=== PATIENT | female | born 1980 | race Two or more races ===

== ENCOUNTER → 2025-04-05 | Outpatient (CLI) | payer MEDICAID, SELFPAY ==
--- NOTE | 2025-04-05 09:00 | XR_ITS ---
Examination: CT chest, without intravenous contrast. Sagittal and coronal 2-D reconstructions. Exam date and time: April 05, 2025 0954 hours, comparison February 17, 2024 INDICATIONS: CT chest February 17, 2024 15 mm pulmonary nodule right upper lobe CTDI:vol (mGy) 8.46 DLP: (mGycm) 300 Technique: Multiple 3.0 mm axial sections of the chest to been obtained. Bone and lung density settings are obtained. Sagittal and coronal 2-D reconstructions have been obtained. Low dose protocols were performed. One or more of the following dose reduction techniques were used; automated exposure control, adjustment of the mA and/or KV according to patient size, use of iterative reconstruction technique. Findings: No thoracic aortic aneurysmal dilatation No pulmonary artery emboli. 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
[2025-04-05 09:46] LABS: HCG Qualitative,Urine Negative
== END | disposition home or self-care (01) ==
PROVIDERS: PCP Physician Assistant; Referring Provider Internal Medicine Pulmonary Disease; Visit Provider Internal Medicine Pulmonary Disease
DX: R91.1 Solitary pulmonary nodule (principal); E27.8 Other specified disorders of adrenal gland; Z32.00 Encounter for pregnancy test, result unknown
CPT/HCPCS: 71250; 81025

== ENCOUNTER 2025-05-15 19:17 | Emergency (ER) | payer MEDICAID, SELFPAY ==
[2025-05-15 19:19] VITALS: BMI 31.1
--- NOTE | 2025-05-15 19:25 | EKG_ITS ---
[facility] Test Date: 2025-05-15 Pat Name: AMOS URBANO Department: Room: - Gender: Female [employer]: : 1980 Requested By: ED Temporary Provider Order Number: [id number] Reading MD: ED Temporary Provider Measurements Intervals [place] Rate: 79 P: 55 SD: 132 QRS: 45 QRSD: 84 T: 42 QT: 364 QTc: 419 Interpretive Statements SINUS RHYTHM Compared to ECG 12/05/2018 17:08:55 Sinus arrhythmia no longer present /store/S0/[id number].pdf
[2025-05-15 20:09] VITALS: BP 130/80; PULSE 81; RESP 18; TEMP 36.7; O2SAT 96
--- NOTE | 2025-05-15 20:12 | PD.EDRME ---
Rapid Medical Screening Exam [facility] Arrival date/time: 05/15/25 19:17 Chief Complaint: Chest Pain Vital signs: Vital Signs Temperature 98.1 F 05/15/25 20:09 Pulse Rate 81 05/15/25 20:09 Respiratory Rate 18 05/15/25 20:09 Blood Pressure 130/80 05/15/25 20:09 Pulse Oximetry (%) 96 05/15/25 20:09 Oxygen Delivery Method Room Air 05/15/25 20:09 [facility] Narrative: 44-year-old female who was feeding her children an hour prior to arrival and began to experience left upper chest pain which radiates to her back associate with nausea and shortness of breath. Patient does state that she was getting over a cold a week ago. Denies drinking smoking. Denies hypertension high cholesterol diabetes. Denies family history of early cardiac disease. Denies recent travel surgeries or immobilizations or history of leg swelling or blood clots.
--- NOTE | 2025-05-15 20:14 | XR_ITS ---
EXAMINATION: PA lateral chest 2 views TECHNIQUE: Upright PA lateral chest 2 views Date and time: May 15, 20252030 hours INDICATIONS: Left upper chest pain shortness of breath today. FINDINGS: Normal heart size Possible 16 mm pulmonary nodule right upper lobe. No pulmonary edema. Intact osseous structures IMPRESSION: Recommend AP lordotic chest to exclude 16mm pulmonary nodule right upper lobe No aspiration pneumonia
--- NOTE | 2025-05-15 20:15 | PD.EDCHEST ---
ED Chest Pain RME/HPI General Chief Complaint: Chest Pain Stated Complaint: L upper chest pain with SOB INCREASING WITH DEEP B Time Seen by Provider: 05/15/25 20:15 Arrival date/time: 05/15/25 19:17 RME / HPI RME / HPI narrative: 44-year-old female who was feeding her children an hour prior to arrival and began to experience left upper chest pain which radiates to her back associate with nausea and shortness of breath. Patient does state that she was getting over a cold a week ago. Pain has been constant. Pain is not exertional or associated with pleurisy as there are no alleviating or exacerbating factors. Denies drinking smoking. Denies hypertension high cholesterol diabetes. Denies family history of early cardiac disease. Denies recent travel surgeries or immobilizations or history of leg swelling or blood clots. Related Data Home Medications ?Medication ?Instructions ?Recorded ?Confirmed omeprazole 20 mg capsule,delayed 20 mg PO BID 05/01/24 05/01/24 release Allergies Allergy/AdvReac Type Severity Reaction Status Date / Time No Known Allergies Allergy Verified 05/15/25 19:23 ED Exam Narrative Physical exam: Constitutional: Patient alert and oriented. Well appearing. No acute distress. Not toxic appearing. Head: Normocephalic, atraumatic. Eyes: Periorbital regions bilaterally normal to inspection. Conjunctiva clear bilaterally. Sclera anicteric bilaterally. Pupils equal, round, reactive to light bilaterally. Extraocular movements intact bilaterally. Mouth/Throat: Mild erythema of OP. Mucous membranes moist. No stridor or muffled voice. No trismus. Handling secretions without difficulty. Airway widely patent. Neck: Supple. Trachea midline. No JVD. No nuchal rigidity. Normal range of motion. Respiratory: Normal effort. No accessory muscle use or respiratory distress. Lungs clear to auscultation bilaterally without rhonchi, wheezes, or crackles. Cardiovascular: RRR. Normal S1/S2. No murmurs or rubs. Radial pulses intact bilaterally. Scar noted to R anterior lateral chest wall. + TTP to left chest wall. Abdomen: Soft. Non-distended. Non-tender throughout. No pulsatile mass. No guarding or rebound. Negative Huizar?s sign. Negative McBurney?s point tenderness. Negative Rovsing?s. Back: No midline tenderness or step-offs. No CVA tenderness to palpation bilaterally. Upper Extremities: No gross deformities. Lower Extremities: No gross deformities. No edema or calf tenderness. Neuro: Speech normal. No gross motor or sensory deficits to upper or lower extremities bilaterally. GCS 15. CN II?XII grossly intact. Skin: Warm, dry, normal color. Psych: Normal affect. Cooperative. Normal insight. Course Quality Measures none Orders Category Date Time Status EKG (ED ONLY) *Do not use* NOW Care 05/15/25 19:25 Completed EKG (ED Only) Stat Exams 05/15/25 19:25 Draft XR chest 2V Stat Exams 05/15/25 20:14 Completed B-Type Natriuretic Peptide Stat Lab 05/15/25 20:30 Completed CBC Stat Lab 05/15/25 20:30 Completed Comprehensive Metabolic Panel Stat Lab 05/15/25 20:30 Completed HCG,Qualitative Serum Stat Lab 05/15/25 20:30 Completed Lipase Stat Lab 05/15/25 20:30 Completed Strep A Rapid Stat Lab 05/16/25 00:24 Completed Troponin I Stat Lab 05/15/25 20:30 Completed Troponin I Stat Lab 05/15/25 23:57 Completed UA [Urinalysis] Stat Lab 05/15/25 20:58 Completed Urinalysis, C/S if Indicated Stat Lab 05/15/25 20:58 Completed Ketorolac Inj [Toradol Inj] Med 05/15/25 20:15 Discontinued 30 mg IM X1 ONE Reevaluation(s) Reevaluation #1: Upon further evaluation of patient she states that she can remember that she was lifting her 5-year-old the other day and might of pulled something, patient does state that the pain is worse when she presses her chest or moves in a certain way. She is requesting a rapid strep swab as well because she feels like she has a mild sore throat. Time: 00:25 Reevaluation #2: At the time of reassessment, the patient remains alert and oriented ?3 with GCS 15. Vitals are normal, pain is controlled, and the patient is tolerating oral intake without nausea or vomiting. The patient is agreeable to discharge and verbalizes understanding of the diagnosis, studies, treatment plan, medications (including side effects/precautions), and strict ER return precautions as discussed in the ED. All concerns were addressed, and the patient is comfortable with the plan. Vital Signs Vital signs: Vital Signs Temperature 98.1 F 05/15/25 20:09 Pulse Rate 81 05/15/25 20:09 Respiratory Rate 18 05/15/25 20:09 Blood Pressure 130/80 05/15/25 20:09 Pulse Oximetry (%) 96 05/15/25 20:09 Oxygen Delivery Method Room Air 05/15/25 20:09 Chest Pain MDM Narrative MDM Narrative:: MDM The patient presents with chest pain. Differential diagnosis includes musculoskeletal chest pain, costochondritis, and thoracic radiculopathy. Less likely etiologies include: PE: Wells low risk, PERC negative. ACS: HEART Score low risk, suggesting low probability of major adverse cardiac event in the next 6 weeks. Aortic Dissection: Unlikely given palpable pulses, warm extremities bilaterally, and no radiation of pain. Tamponade: Unlikely given absence of hypotension, muffled heart sounds, JVD, friction rub, narrow pulse pressure <30, low-voltage EKG, or enlarged cardiac silhouette. Endocarditis: Unlikely as no Nunez criteria present (Archer spots, splinter hemorrhages, Osler nodes). CHF: Unlikely given no JVD, peripheral edema, or orthopnea. The patient is clinically well-appearing and stable. Evaluation today does not suggest cardiac ischemia, pulmonary embolism, aortic dissection, or other life-threatening etiology. These diagnoses were considered and excluded clinically and with appropriate studies. Nonetheless, it is understood by both patient and provider that no evaluation can entirely exclude such conditions. Admission was considered but is not indicated based on today?s evaluation and low-risk stratification. The patient is strongly encouraged to follow up with their PMD and/or truck despatcher within the next 1-2 days. Strict ER return precautions advised for any continued, worsening, or new symptoms or any concerns at all. Patient data External records reviewed:: None Clinical information provided by:: patient Social determinants that could affect healthcare access:: other (specify) Patient has the following chronic illnesses:: None How is presenting disease/condition affected by chronic disease/condition?: no chronic disease Evaluation data The following diagnostics were reviewed and interpreted by me:: other (specify) Lab and/or radiology exams considered but not ordered:: Labs and radiology considered, but not ordered as they were not clinically indicated at this time. Interpretation Summary: EKG 79 normal sinus rhythm, normal axis without ST elevation or T wave inversions. Lab work notable for minimal thrombocytosis with platelet count of 453 otherwise CBC, CMP, BNP, troponin negative x 2 without severe metabolic or electrolyte abnormality UA unremarkable Chest x-ray notable for possible 16 mm nodule in the right upper lobe and radiology requesting additional views (pt states this is a known nodule for her which she got when she was a child and its thought to be scar tissue after having a thoracentecis, she is currently following with a photo machine operator for this) otherwise no acute cardiopulmonary abnormality Medications / Prescriptions Medications or Prescriptions considered but not ordered:: I considered prescription management (both outpatient prescriptions AND drug treatment in the ER) and decided that this was necessary and was prescribed as charted. Medication administrations:: Medication Administration History Discontinued Medications Ketorolac Tromethamine (Ketorolac Inj 60 Mg/2 Ml Vial) 30 mg IM X1 ONE Stop: 05/15/25 20:16 Last Admin: 05/15/25 21:11 Dose: 30 mg Documented By: MAGGY As noted Consultations Consultation(s) initiated? (list below): No Diagnosis Chest Pain Differential Diagnosis: atypical chest pain, costochondritis and chest pain Most likely diagnosis given after review of the tests above:: Costochondritis versus chest pain undifferentiated Admission Indicated Admission indicated?: not indicated Explain why admission is indicated or not indicated:: Escalation of care including admission/observation considered but I decided to discharge because based on the overall clinical presentation, and after consideration of the patient's course in the emergency department and plan for outpatient management, I believe that neither further observation nor inpatient care is required at this time. Admission Request Was there a request for admission?: No Disposition Plan Disposition Plan: Discharge Discharge Attestation Discharge Attestation: The patient and all family members were given an opportunity to ask questions and understood the discharge instructions. Discharge instructions specifically effects, indications for sooner follow up or return to the emergency department, and the expected course of current diagnosis. Patient condition: Stable Discharge Plan Plan Patient Disposition: HOME (Self Care) Prescriptions/Referrals Prescriptions/Med Rec: No Action omeprazole 20 mg Capsule,Delayed Release(Dr/Ec) 20 mg PO BID Referrals: No Primary/Family,Physician [Primary Care Provider] - In 1 week Problem List Clinical Impression: Chest pain Patient/Caregiver Discharge Instructions Education Materials: ED Chest Pain, Uncertain Cause Additional Instructions: Follow up with your primary medical doctor within 24 hours. Return to the Emergency Room immediately for any new, worsening, continuing symptoms or any concerns at all. Return to the Emergency Room within 24 hours if you are unable to follow up with your primary medical doctor within 24 hours. Follow-up with a truck despatcher within the week as well. Print Language: Portuguese Stand Alone Forms: [place] Award Info., Patient Portal Info Letter PA/ABSENCE MANAGEMENT CONSULTANT Supervising Physician PA/ABSENCE MANAGEMENT CONSULTANT Supervising Physician: Dr. Souza
[2025-05-15 20:46] LABS: Basophils # (Auto) 0.1 Thou/mm3 (0.0-0.2); Basophils % (Auto) 1 % (0-2.5); Eosinophils # (Auto) 0.1 Thou/mm3 (0.0-0.5); Eosinophils % (Auto) 1 % (0-10); Hematocrit 40.3 % (36.0-46.0); Hemoglobin 13.1 g/dL (12.0-16.0); Immature Granulocytes Auto 0.04 Thou/mm3 (0.00-0.00); Lymphocytes # (Auto) 3.2 Thou/mm3 (1.0-4.8); Lymphocytes % (Auto) 31 % (10-50); Mean Corpuscular HGB Conc 32.5 g/dl (31.0-37.0); Mean Corpuscular Hemoglobin 29.7 pg (25.0-35.0); Mean Corpuscular Volume 91 fL (80-100); Monocytes # (Auto) 0.6 Thou/mm3 (0.0-0.8); Monocytes % (Auto) 6 % (0-12); Neutrophils # (Auto) 6.4 Thou/mm3 (1.8-7.7); Neutrophils % (Auto) 61 % (37-80); Nucleated Red Blood Cell # 0.00 Thou/mm3 (0.00-0.00); Nucleated Red Blood Cell % 0 /100 WBC (0); Platelet Count 453 Thou/mm3 (140-440); RDW Standard Deviation 42.9 fL (36.4-46.3); Red Blood Count 4.41 Miln/mm3 (4.00-5.20); White Blood Count 10.4 Thou/mm3 (3.6-11.0)
[2025-05-15 21:01] LABS: HCG,Qualitative Serum Negative
[2025-05-15 21:03] LABS: B-Type Natriuretic Peptide < 20 pg/mL (0-100)
[2025-05-15 21:06] LABS: Alanine Aminotransferase 22 U/L (10-49); Albumin, Serum 5.1 gm/dL (3.5-5.0); Albumin/Globulin Ratio 1.7 (1.2-2.2); Alkaline Phosphatase 73 U/L (46-116); Anion Gap 10 (7-16); Aspartate Amino Transferase 23 U/L (0-34); BUN/Creatinine Ratio 12 Ratio (12-20); Bilirubin,Total 0.3 mg/dL (0.3-1.2); Blood Urea Nitrogen 7 mg/dL (9-23); Calcium 10.1 mg/dL (8.3-10.6); Calcium (Corrected) 10.1 mg/dL (8.5-10.1); Carbon Dioxide 26.8 mMol/L (20.0-31.0); Chloride 103 mMol/L (98-107); Creatinine (Component) 0.6 mg/dL (0.6-1.3); Estimated Creatinine Clearance 108.4 mL/min (>60); Globulin 3.0 gm/dL (2.3-3.5); Glucose 94 mg/dL (74-106); Lipase 26 U/L (12-53); Osmolality,Calculated 277 (275-295); Potassium 3.5 mMol/L (3.4-5.1); Sodium 140 mMol/L (136-145); Total Protein 8.1 gm/dL (5.7-8.2); Troponin I < 0.002 ng/mL (0.0-0.045); eGFR > 60 See Note
[2025-05-15 21:06] LABS: Collection Type, Urine Clean Catch
[2025-05-15 21:09] LABS: Bilirubin,Urine Negative (Negative); Blood,Urine Trace (Negative); Clarity,Urine Clear (Clear/Hazy); Color,Urine Colorless (Lt Yel-Yel); Culture Indicated,Urine Not Indicated; Glucose, Urine Negative (Negative); Ketones,Urine Negative (Negative); Leukocyte Esterase,Urine Negative (Negative); Nitrite,Urine Negative (Negative); PH,Urine 6.5 (5.0-7.0); Protein,Urine Negative (Neg - Trace); RBC,Urine 3 /hpf (0-3); Specific Gravity,Urine 1.008 (1.001-1.035); Squamous Epithelial Cell,Urine 1 /hpf (0-5); Urobilinogen,Urine Negative mg/dL (0.0-1.0); WBC,Urine 1 /hpf (0-5)
[2025-05-15] MEDS: KETOROLAC INJ 60 MG/2 ML VIAL 30 MG IM (21:11)
[2025-05-16 00:18] VITALS: BP 131/80; PULSE 77; RESP 18; TEMP 36.8; O2SAT 99
[2025-05-16 00:36] LABS: Troponin I < 0.002 ng/mL (0.0-0.045)
[2025-05-16 00:49] LABS: Strep A Rapid Negative (Negative)
== END 2025-05-16 01:55 | disposition home or self-care (01) ==
PROVIDERS: Physician Assistant; Emergency Provider Emergency Medicine
DX: M94.0 Chondrocostal junction syndrome [Tietze] (principal)
CPT/HCPCS: 36415; 71046; 80053; 81001; 83690; 83880; 84484; 84703; 85025; 87651; 93005; 96372; 99283; J1885